=== PATIENT | male | born 1995 | race Two or more races ===

== ENCOUNTER 2018-05-10 16:10 | Emergency (ER) | payer MEDICAID ==
[~2018-05-10] VITALS: Ht 185.4 cm; Wt 218.0 kg
[2018-05-10 22:55] VITALS: BP 131/64
== END 2018-05-10 23:29 | disposition home or self-care (01) ==
LOC: ER 16:10
DX: L03.314 Cellulitis of groin (principal); I10 Essential (primary) hypertension; F17.200 Nicotine dependence, unspecified, uncomplicated; Z88.5 Allergy status to narcotic agent
CPT/HCPCS: 99283